=== PATIENT | female | born 1990 | race Caucasian/White ===

== ENCOUNTER 2020-03-05 13:28 | Emergency (ER) | payer BC ==
[2020-03-05] MEDS ORDERED: Rabies Vaccine Human 2.5 UNITS VIAL IM ONE (14:30)
== END 2020-03-05 15:24 | disposition home or self-care (01) ==
LOC: ERS 13:28 → ER/OP 15:24
DX: Z23 Encounter for immunization (principal)
CPT/HCPCS: 90376; 90471; 90675; 96372

== ENCOUNTER 2023-03-17 17:30 | Outpatient (CLI) | payer BC | END 2023-03-17 17:31 | disposition home or self-care (01) | LOC: SLEEPLAB 17:30 | PROVIDERS: ATTEND Physician Assistant | DX: G47.33 Obstructive sleep apnea (adult) (pediatric) (principal); R53.83 Other fatigue; G47.61 Periodic limb movement disorder; R51.9 Headache, unspecified; G31.84 Mild cognitive impairment of uncertain or unknown etiology; F41.9 Anxiety disorder, unspecified; K21.9 Gastro-esophageal reflux disease without esophagitis; F32.A Depression, unspecified; E66.9 Obesity, unspecified; R06.83 Snoring; G47.00 Insomnia, unspecified; Z68.29 Body mass index [BMI] 29.0-29.9, adult | CPT/HCPCS: 95800 ==